=== PATIENT | male | born 1955 | race Caucasian/White ===

== ENCOUNTER 2021-02-15 06:55 | Emergency (ER) | payer MEDICARE ==
--- NOTE | 2021-02-15 07:51 | EDM.PDOC ---
ED HPI GENERAL MEDICAL PROBLEM - General Chief Complaint: General Stated Complaint: HEADACHE ALSO CHILLS Time Seen by Provider: 02/15/21 07:45 Source of Information: Reports: Patient History Limitations: Reports: No Limitations - History of Present Illness INITIAL COMMENTS - FREE TEXT/NARRATIVE: 65-year-old otherwise healthy male presents concerns of headache, muscle aches, extreme fatigue. Reports symptoms started approximately 72 hours ago. He is having difficulty sleeping at night, primarily due to headache. He reports that he noticed an apparent bite on his right flank 2 days ago, there is some surrounding erythema, he is not certain if he had a tick bite but he is in the schmitt quite a bit. He has no neck pain or stiffness. He describes a bitemporal headache without radiation. It does wax and wane somewhat. No associated weakness or gait instability. No facial droop. No vision changes. No fever. No cough or shortness of breath. - Related Data Allergies Allergy/AdvReac Type Severity Reaction Status Date / Time atorvastatin [From Lipitor] Allergy Other Verified 02/15/21 07:25 Home Meds: Home Meds Acetaminophen [Tylenol] 325 mg PO Q4H PRN 02/15/21 [History] Bempedoic Acid [Nexletol] 180 mg PO DAILY 02/15/21 [History] Doxycycline [Vibra-Tabs] 100 mg PO Q12HR 12 Days tab 02/15/21 [Rx] amLODIPine [Norvasc] 2.5 mg PO DAILY 02/15/21 [History] Past Medical History HEENT History: Reports: Impaired Vision Cardiovascular History: Reports: High Cholesterol, Hypertension - Past Surgical History GI Surgical History: Reports: Colostomy Social & Family History - Recreational Drug Use Recreational Drug Use: No ED ROS GENERAL - Review of Systems Review Of Systems: See Below Constitutional: Reports: Malaise, Decreased Appetite HEENT: Reports: No Symptoms Respiratory: Reports: No Symptoms. Denies: Shortness of Breath Cardiovascular: Reports: No Symptoms Endocrine: Reports: No Symptoms GI/Abdominal: Reports: Decreased Appetite. Denies: Abdominal Pain, Diarrhea : Reports: No Symptoms Musculoskeletal: Reports: Muscle Pain Skin: Reports: Rash Neurological: Reports: Headache Psychiatric: Reports: No Symptoms Hematologic/Lymphatic: Reports: No Symptoms Immunologic: Reports: No Symptoms ED EXAM, GENERAL - Physical Exam Exam: See Below Exam Limited By: No Limitations General Appearance: Alert, No Apparent Distress Ears: Normal External Exam Nose: Normal Inspection Head: Atraumatic, Normocephalic Neck: Normal Inspection, Other (Full ROM without meningismus). No: Limited Range of Motion Respiratory/Chest: Lungs Clear Cardiovascular: Regular Rate, Rhythm GI/Abdominal: Soft, Non-Tender Back Exam: Normal Inspection Extremities: Normal Inspection Neurological: Alert, Oriented, CN II-XII Intact, Normal Cognition, Normal Gait, No Motor/Sensory Deficits, Other (Speech is fluid and patient is conversant, no cranial nerve deficit, no nystagmus, upper and lower extremity strength 5/5 and symmetric.) Psychiatric: Normal Affect, Normal Mood Skin Exam: Warm, Dry Course - Vital Signs Last Recorded V/S: Last Vital Signs Temp 36.4 C 02/15/21 07:28 Pulse 72 02/15/21 07:28 Resp 16 02/15/21 07:28 BP 165/103 H 02/15/21 07:28 Pulse Ox 97 02/15/21 07:28 - Orders/Labs/Meds Orders: Active Orders 24 hr Category Date Time Status BABESIA MICROTI ANTIBODY PANEL Stat Lab 02/15/21 08:12 Received COVID-19/FLU A+B/RSV [MOLEC] Stat Lab 02/15/21 09:27 Ordered LYME, TOTAL AB TEST/REFLEX Stat Lab 02/15/21 08:12 Received Labs: Laboratory Tests 02/15/21 02/15/21 Range/Units 08:12 08:12 WBC 6.5 (4.5-11.0) K/uL RBC 5.26 (4.30-5.90) M/uL Hgb 16.5 H (12.0-15.0) g/dL Hct 48.7 (40.0-54.0) % MCV 93 (80-98) fL MCH 31 (27-31) pg MCHC 34 (32-36) % Plt Count 188 (150-400) K/uL Sodium 141 (140-148) mmol/L Potassium 4.8 (3.6-5.2) mmol/L Chloride 104 (100-108) mmol/L Carbon Dioxide 27 (21-32) mmol/L Anion Gap 10.4 (5.0-14.0) mmol/L BUN 13 (7-18) mg/dL Creatinine 1.1 (0.8-1.3) mg/dL Est Cr Clr Drug Dosing 62.59 mL/min Estimated GFR (MDRD) > 60 (>60) Glucose 114 H (74-106) mg/dL Calcium 9.3 (8.5-10.1) mg/dL Total Bilirubin 0.8 (0.2-1.0) mg/dL AST 20 (15-37) U/L ALT 42 (12-78) U/L Alkaline Phosphatase 75 (46-116) U/L Total Protein 7.4 (6.4-8.2) g/dL Albumin 3.6 (3.4-5.0) g/dL Globulin 3.8 H (2.3-3.5) g/dL Albumin/Globulin Ratio 1.0 L (1.2-2.2) Meds: Medications Discontinued Medications Generic Name Dose Route Start Last Admin Trade Name Freq PRN Reason Stop Dose Admin Doxycycline Hyclate 100 mg 02/15/21 09:25 Doxycycline 100 Mg Cap PO 02/15/21 09:26 ONETIME ONE Droperidol 1.25 mg 02/15/21 08:02 02/15/21 08:07 Droperidol 5 Mg/2 Ml Sdv IM 02/15/21 08:03 1.25 mg ONETIME ONE Administration Ketorolac Tromethamine 30 mg 02/15/21 08:03 02/15/21 08:09 Ketorolac 30 Mg/Ml Sdv IM 02/15/21 08:04 30 mg ONETIME ONE Administration - Re-Assessments/Exams Free Text/Narrative Re-Assessment/Exam: This is a 65-year-old otherwise healthy male patient with headache, fatigue, muscle aches. This is in the setting of a probable tick bite, there is a bite on the right flank noted, shows a picture of some surrounding erythema couple days ago. Overall symptoms are consistent with a tickborne illness. His exam is reassuring, I do not see any signs of red flags with regards to his headache such as meningismus, focal neurologic deficit, to necessitate further work-up or imaging. We are going treat him for tickborne illness. I have written him a prescription for doxycycline. He was provided with return precautions 02/15/21 09:35 Departure - Departure Time of Disposition: 09:30 Disposition: Home, Self-Care 01 Clinical Impression: Tick-borne disease - Discharge Information Instructions: Tick Bite Information, Adult, Lyme Disease Referrals: Arsenio Prescott MD [Primary Care Provider] - Forms: ED Department Discharge Additional Instructions: As discussed, your symptoms are consistent with a tickborne illness, particularly given the bite and your skin. Please take the prescribed doxycycline. I would like you to follow-up with your primary doctor this week to ensure your symptoms are improving and make further treatment plans. If you develop high fevers, confusion, weakness, or other symptoms you or your significant other find concerning please do return to the ER for reevaluation. Thank you for trusting us to care for you today. Sepsis Event Note (ED) - Evaluation Sepsis Screening Result: No Definite Risk - Focused Exam Vital Signs: Vital Signs Temp Pulse Resp BP Pulse Ox 02/15/21 07:28 36.4 C 72 16 165/103 H 97 02/15/21 07:22 36.4 C 72 16 165/103 H 97 - My Orders Last 24 Hours: My Active Orders 02/15/21 08:12 BABESIA MICROTI ANTIBODY PANEL Stat LYME, TOTAL AB TEST/REFLEX Stat 02/15/21 09:27 COVID-19/FLU A+B/RSV [MOLEC] Stat - Assessment/Plan Last 24 Hours: My Active Orders 02/15/21 08:12 BABESIA MICROTI ANTIBODY PANEL Stat LYME, TOTAL AB TEST/REFLEX Stat 02/15/21 09:27 COVID-19/FLU A+B/RSV [MOLEC] Stat
[2021-02-15] MEDS ORDERED: Ketorolac 30 MG/ML SDV IM ONE (08:03)
[2021-02-15] MEDS ORDERED: Doxycycline 100 MG Cap PO ONE (09:25)
[2021-02-15 10:13] LABS: CORONAVIRUS COVID-19 NAA NEGATIVE (NEGATIVE)
[2021-02-18 12:13] LABS: LYME IGG/IGM AB <0.91 ISR (0.00-0.90)
[2021-02-18 16:08] LABS: BABESIA MICROTI IGG <1:10 (Neg:<1:10); BABESIA MICROTI IGM <1:10 (Neg:<1:10)
== END 2021-02-15 09:55 | disposition home or self-care (01) ==
LOC: JP.ED 06:55
DX: A93.8 Other specified arthropod-borne viral fevers (principal); I10 Essential (primary) hypertension; Z88.8 Allergy status to other drugs, medicaments and biological substances; Z20.822 Contact with and (suspected) exposure to COVID-19
CPT/HCPCS: 0241U; 36415; 80053; 85027; 86618; 86753; 96372; 99284; A9270; J1790; J1885